=== PATIENT | male | born 1935 | race Caucasian/White ===

== ENCOUNTER 2016-03-31 15:50 | Outpatient (CLI) | payer MEDICARE | END 2016-03-31 15:51 | disposition home or self-care (01) | DX: D70.9 Neutropenia, unspecified (principal); D63.1 Anemia in chronic kidney disease; N50.9 Disorder of male genital organs, unspecified ==

== ENCOUNTER 2016-06-23 11:59 | Outpatient (CLI) | payer MEDICARE | END 2016-06-23 12:00 | disposition home or self-care (01) | DX: N05.9 Unspecified nephritic syndrome with unspecified morphologic changes (principal); D70.9 Neutropenia, unspecified; D63.1 Anemia in chronic kidney disease; R80.9 Proteinuria, unspecified; E83.30 Disorder of phosphorus metabolism, unspecified; N25.81 Secondary hyperparathyroidism of renal origin ==

== ENCOUNTER 2016-06-23 15:12 | Outpatient (CLI) | payer MEDICARE | END 2016-06-23 15:13 | disposition home or self-care (01) | DX: N05.9 Unspecified nephritic syndrome with unspecified morphologic changes (principal); D70.9 Neutropenia, unspecified; D63.1 Anemia in chronic kidney disease; E83.30 Disorder of phosphorus metabolism, unspecified; R80.9 Proteinuria, unspecified ==

== ENCOUNTER 2016-06-24 08:00 | Outpatient (CLI) | payer MEDICARE | END 2016-06-24 23:59 | DX: N05.9 Unspecified nephritic syndrome with unspecified morphologic changes (principal); R80.9 Proteinuria, unspecified; D70.9 Neutropenia, unspecified; D63.1 Anemia in chronic kidney disease; E83.30 Disorder of phosphorus metabolism, unspecified; N25.81 Secondary hyperparathyroidism of renal origin ==

== ENCOUNTER 2016-07-28 07:58 | Outpatient (CLI) | payer MEDICARE ==
[2016-07-28 11:23] LABS: BASOPHILS % (AUTO) 0.5 %; EOSINOPHILS # (AUTO) 0.2 10^3/uL (0.0-0.7); EOSINOPHILS % (AUTO) 3.1 %; HCT - HEMATOCRIT 31.2 % (42.0-52.0); HGB - HEMOGLOBIN 10.4 g/dL (14.0-18.0); LYMPHOCYTES % (AUTO) 12.9 %; MEAN CORPUSCULAR HEMOGLOBIN 30.1 pg (27.0-31.0); MEAN CORPUSCULAR HGB CONC 33.3 g/dL (32.0-36.0); MEAN CORPUSCULAR VOLUME 90.5 fL (80.0-94.0); MEAN PLATELET VOLUME 9.3 fL (7.4-11.4); MONOCYTES # (AUTO) 0.6 10^3/uL (0.0-1.0); MONOCYTES % (AUTO) 8.1 %; NEUTROPHILS # (AUTO) 5.8 10^3/uL (1.5-6.6); NEUTROPHILS % (AUTO) 75.4 %; RED BLOOD COUNT 3.45 10^6/uL (4.70-6.10); RED CELL DISTRIBUTION WIDTH 13.6 % (12.0-15.0); UNCORRECTED WHITE BLOOD COUNT 7.7 x10^3/uL; WHITE BLOOD COUNT 7.7 x10^3/uL (4.8-10.8)
[2016-07-28 11:30] LABS: CALCIUM 8.5 mg/dL (8.5-10.3); CREATININE 4.2 mg/dL (0.6-1.2)
== END 2016-07-28 07:59 | disposition home or self-care (01) ==
LOC: LAB.F 07:58
PROVIDERS: ATTEND Internal Medicine Nephrology
DX: N05.9 Unspecified nephritic syndrome with unspecified morphologic changes (principal); D63.1 Anemia in chronic kidney disease
CPT/HCPCS: 36415; 80048; 83880; 85025

== ENCOUNTER 2016-08-27 08:16 | Outpatient (CLI) | payer MEDICARE ==
[2016-08-27 11:05] LABS: BASOPHILS % (AUTO) 0.8 %; EOSINOPHILS # (AUTO) 0.2 10^3/uL (0.0-0.7); EOSINOPHILS % (AUTO) 3.4 %; HCT - HEMATOCRIT 31.3 % (42.0-52.0); HGB - HEMOGLOBIN 10.5 g/dL (14.0-18.0); LYMPHOCYTES # (AUTO) 0.9 10^3/uL (1.5-3.5); LYMPHOCYTES % (AUTO) 17.3 %; MEAN CORPUSCULAR HEMOGLOBIN 30.6 pg (27.0-31.0); MEAN CORPUSCULAR HGB CONC 33.7 g/dL (32.0-36.0); MEAN PLATELET VOLUME 9.9 fL (7.4-11.4); MONOCYTES # (AUTO) 0.4 10^3/uL (0.0-1.0); MONOCYTES % (AUTO) 7.1 %; NEUTROPHILS # (AUTO) 3.8 10^3/uL (1.5-6.6); NEUTROPHILS % (AUTO) 71.4 %; RED BLOOD COUNT 3.44 10^6/uL (4.70-6.10); RED CELL DISTRIBUTION WIDTH 13.2 % (12.0-15.0); UNCORRECTED WHITE BLOOD COUNT 5.4 x10^3/uL; WHITE BLOOD COUNT 5.4 x10^3/uL (4.8-10.8)
[2016-08-27 11:34] LABS: FERRITIN 172.1 ng/mL (23.9-336.2)
[2016-08-27 14:37] LABS: CALCIUM 8.6 mg/dL (8.5-10.3); CREATININE 5.4 mg/dL (0.6-1.2); PHOSPHORUS 5.6 mg/dL (2.5-4.6); POTASSIUM 4.7 mmol/L (3.5-5.0)
== END 2016-08-27 08:17 | disposition home or self-care (01) ==
LOC: LAB.F 08:16
PROVIDERS: ATTEND Internal Medicine Nephrology
DX: N05.9 Unspecified nephritic syndrome with unspecified morphologic changes (principal); D63.1 Anemia in chronic kidney disease; D50.0 Iron deficiency anemia secondary to blood loss (chronic); E83.30 Disorder of phosphorus metabolism, unspecified
CPT/HCPCS: 36415; 80048; 82728; 83540; 83880; 83970; 84100; 84466; 85025

== ENCOUNTER 2016-09-29 14:19 | Outpatient (CLI) | payer MEDICARE ==
[2016-09-29 18:46] LABS: HGB - HEMOGLOBIN 10.6 g/dL (14.0-18.0); MEAN CORPUSCULAR HEMOGLOBIN 30.4 pg (27.0-31.0); MEAN CORPUSCULAR HGB CONC 33.1 g/dL (32.0-36.0); MEAN CORPUSCULAR VOLUME 91.6 fL (80.0-94.0); MEAN PLATELET VOLUME 9.3 fL (7.4-11.4); RED BLOOD COUNT 3.49 10^6/uL (4.70-6.10); RED CELL DISTRIBUTION WIDTH 13.7 % (12.0-15.0); WHITE BLOOD COUNT 5.7 x10^3/uL (4.8-10.8)
[2016-09-29 19:45] LABS: CALCIUM 8.3 mg/dL (8.5-10.3)
[2016-09-29 19:47] LABS: CREATININE 7.2 mg/dL (0.6-1.2)
== END 2016-09-29 14:20 | disposition home or self-care (01) ==
LOC: LAB.F 14:19
PROVIDERS: ATTEND Internal Medicine Nephrology
DX: D70.9 Neutropenia, unspecified (principal); N05.9 Unspecified nephritic syndrome with unspecified morphologic changes
CPT/HCPCS: 36415; 80048

== ENCOUNTER 2017-04-08 12:10 | Outpatient (CLI) | payer MEDICARE ==
--- NOTE | 2017-04-08 15:22 | XRAY Report ---
BILATERAL HIPS AND PELVIS: 04/08/2017 CLINICAL INDICATION: Hip pain. FINDINGS: Frontal view of the hips and pelvis and frogleg lateral views of the hips demonstrate mild osteoarthritis. There is no evidence of acute fracture or dislocation. Peritoneal dialysis catheter is noted in the pelvis, and atherosclerotic calcifications are present. IMPRESSION: MILD BILATERAL HIP OSTEOARTHRITIS. TD: 04/08/2017 15:20
--- NOTE | 2017-04-08 15:23 | XRAY Report ---
TWO VIEW CHEST: 04/08/2017 CLINICAL INDICATION: Shortness of breath. COMPARISON: 07/04/2015. FINDINGS: Frontal and lateral views of the chest demonstrate a normal cardiac silhouette. The lungs remain hyperinflated, compatible with COPD. No focal consolidation, effusion, or pneumothorax is present. IMPRESSION: STABLE COPD. NO EVIDENCE OF ACUTE CARDIOPULMONARY DISEASE. TD: 04/08/2017 15:22
== END 2017-04-08 12:11 | disposition home or self-care (01) ==
LOC: DI 12:10
PROVIDERS: ATTEND Physician Assistant
DX: J44.9 Chronic obstructive pulmonary disease, unspecified (principal); M16.0 Bilateral primary osteoarthritis of hip
CPT/HCPCS: 71046; 73521

== ENCOUNTER 2018-04-08 07:32 | Day surgery (SDC) | payer MEDICARE ==
[2018-04-08] MEDS ORDERED: KETOROLAC 0.45% OPHTH DROPS ONE (07:51)
[2018-04-08] MEDS ORDERED: PROPARACAINE 0.5% OPHTH DROPS 15 ML ONE (07:52)
[2018-04-08] MEDS ORDERED: LACTATED RINGERS 500 ML IV ONE (07:53)
--- NOTE | 2018-04-08 08:06 | ANESTHESIA ---
Pre-Anesthesia VS, & Labs - Diagnosis senile combined cataract - Procedure laser assisted cataract extraction with lens implant, left; right eye laser arcuate corneal astigmatism correction Vital Signs: Temp Pulse Resp BP Pulse Ox 36.5 C 59 L 16 140/74 H 98 04/08/18 08:01 04/08/18 08:01 04/08/18 08:01 04/08/18 08:01 04/08/18 08:01 Height 5 ft 11 in Weight (kg) 77.7 kg - NPO >8 hours Home Medications and Allergies Calcium Carbonate [Tums] 1,000 mg PO AC 01/26/14 Allergies/Adverse Reactions: Allergies Allergy/AdvReac Type Severity Reaction Status Date / Time No Known Drug Allergies Allergy Verified 03/09/14 09:17 Anes History & Medical History - Medical History Cardiovascular: reports: None Pulmonary: reports: None Gastrointestinal: reports: GERD Urinary: reports: Dialysis (peritoneal exchanges at home) Musculoskeletal: reports: Osteoarthritis Endocrine/Autoimmune: reports: None Skin: reports: None Smoking Status: Former smoker (pipe for short time years ago) - Surgical History General: Colonoscopy Eyes Ears Nose Throat (EENT): Cataracts Exam General: Alert, Oriented x3 Dental: WNL Mouth Opening: Greater than 4 Fingerbreadths Neck Mobility: Reduced Mallampati classification: II Thyromental Distance: greater than 6 cm Respiratory: Lungs clear Cardiovascular: Regular rate, Normal S1, Normal S2 Mental/Cognitive Status: Alert/Oriented X3 Plan Anesthesia Type: MAC Consent for Procedure(s) Verified and Reviewed: Yes Code Status: Attempt Resuscitation ASA classification: 3-Severe systemic disease Is this case an emergency?: No
[2018-04-08] MEDS: PHENYLEPHRINE 2.5% OPHTH 2 ML DROPS ONE ×3 (08:10→08:20)
[2018-04-08] MEDS: CYCLOPENTOLATE 1% OPHTH DROPS 2 ML ONE ×3 (08:11→08:20)
[2018-04-08] MEDS ORDERED: TRIAMCIN/MOXIFLOX OPHTHALMIC 0.6 ML VIAL IO ONE (08:16)
[2018-04-08] MEDS ORDERED: TIMOLOL 0.5% OPHTH DROPS ONE (08:16)
[2018-04-08] MEDS ORDERED: BRIMONIDINE 0.2% OPHTH DROPS 5 ML ONE (08:16)
[2018-04-08] MEDS ORDERED: EPINEPHrine 1 MG/ML AMP ONE (08:17)
[2018-04-08] MEDS ORDERED: VANCOMYCIN OPHTHALMI 8MG/0.8ML 8 MG/0.8 ML SYRINGE IO ONE (08:17)
[2018-04-08] MEDS ORDERED: BSS/LIDOCAINE/EPINEPHRINE 1 ML SYRINGE ONE (08:17)
[2018-04-08] MEDS ORDERED: PROPARACAINE 0.5% OPHTH DROPS 15 ML EACHEYE ONE (09:10)
[2018-04-08] MEDS ORDERED: CHONDR SULF/HYALURONATE SYRINGE IO ONE (09:16)
[2018-04-08] MEDS ORDERED: TIMOLOL 0.5% OPHTH DROPS OPTH ONE (09:16)
[2018-04-08] MEDS ORDERED: BRIMONIDINE 0.2% OPHTH DROPS 5 ML OPTH ONE (09:16)
[2018-04-08] MEDS ORDERED: EPINEPHrine 1 MG/ML AMP IVP ONE (09:16)
[2018-04-08] MEDS ORDERED: BSS/LIDOCAINE/EPINEPHRINE 1 ML SYRINGE IO ONE (09:17)
[2018-04-08] MEDS ORDERED: MIDAZOLAM 2 MG/2 ML VIAL IVP ONE (09:30)
[2018-04-08] MEDS ORDERED: NEOMYCIN/POLYMYX/DEXAMETH OPHTH DROPS 5 ML ONE (09:46)
[2018-04-08 10:18] VITALS: BP 126/65
--- NOTE | 2018-04-08 10:39 | OPERATIVE REPORT ---
DATE OF SERVICE: 04/08/2018 Physician: Ayden Potter MD PREOPERATIVE DIAGNOSIS: Visually significant cataract, left eye. Cataract surgery was performed on the right eye on 03/09/2014. POSTOPERATIVE DIAGNOSES: Visually significant cataract, left eye. Cataract surgery was performed on the right eye on 03/09/2014. PROCEDURES 1. Phacoemulsification with posterior chamber intraocular lens implant, left eye, with laser assist. 2. Laser arcuate incisions of the right eye only to correct astigmatism. SURGEON: Ayden Potter MD ANESTHESIA: Monitored anesthesia care. COMPLICATIONS: None. OPERATIVE INDICATIONS: This is an 82-year-old man with progressive vision loss in the left eye due to 3+ nuclear sclerotic and 2-3+ cortical cataract. Best corrected visual acuity was 20/30, with glare to 20/70 in the left eye. Indications for surgery are overall decrease in vision, difficulty reading and difficulty driving in low light or at night. He was consented at length concerning risks and benefits of cataract, left eye, which he expressed a desire to proceed with surgery. He was also consented for laser arcuate incisions of the right eye, and wished to proceed with that as well. OPERATIVE PROCEDURE: The patient was taken to OR #3 and placed under monitored anesthesia care. A surgical timeout was conducted confirming correct patient, correct procedure, and correct surgical site. He was placed on the LenSx laser and his right eye was docked to the laser interface. Laser arcuate keratotomy incisions were performed on the right eye in 2 seconds. The laser was then docked to his left eye. With the laser on the left eye, I performed the capsulotomy lens softening, phacoemulsification wounds, and arcuate keratotomy incisions. He was then moved to the operating microscope given topical anesthesia, and prepped and draped in the usual sterile fashion. The eye was entered at the 3 and 6-o'clock positions. Intracameral Shugarcaine was injected into the anterior chamber, followed by Viscoat. Capsulorrhexis is created by the LenSx laser was removed from the anterior chamber, and the nucleus was hydrodissected and phacoemulsified. The cortex was evacuated using automated infusion and aspiration. Provisc was injected in the capsular bag, and a 19.0- diopter intraocular lens was inserted into the bag. Approximately 0.8 mL mixture of triamcinolone, moxifloxacin, and vancomycin was injected subconjunctivally in the superior quadrant for infection and inflammation prophylaxis. I and A was used to evacuate the viscoelastic materials. The eye was inflated to physiologic pressure using balanced salt solution, and found to be watertight. The patient was taken from the operating room in good condition, and given postop instructions. TD: 04/08/2018 10:07 MACY
== END 2018-04-08 07:33 | disposition home or self-care (01) ==
LOC: SDS 07:32
PROVIDERS: ATTEND Ophthalmology
PROC: 08RK3JZ Replacement of Left Lens with Synthetic Substitute, Percutaneous Approach (ICD-10-PCS; principal; 2018-04-08 09:00)
DX: H25.812 Combined forms of age-related cataract, left eye (principal); H52.202 Unspecified astigmatism, left eye; N18.6 End stage renal disease; Z99.2 Dependence on renal dialysis
CPT/HCPCS: 66984; A9270; J3490; V2632

== ENCOUNTER 2018-07-04 07:16 | Outpatient (CLI) | payer MEDICARE | END 2018-07-04 07:17 | disposition short-term general hospital (02) | LOC: EMS 07:16 | PROVIDERS: ATTEND Surgery | DX: M25.551 Pain in right hip (principal); W01.0XXA Fall on same level from slipping, tripping and stumbling without subsequent striking against object, initial encounter; Y92.009 Unspecified place in unspecified non-institutional (private) residence as the place of occurrence of the external cause; Z99.2 Dependence on renal dialysis | CPT/HCPCS: A0425; A0427 ==

== ENCOUNTER 2018-12-30 09:52 | Outpatient (CLI) | payer MEDICARE ==
--- NOTE | 2018-12-31 04:02 | XRAY Report ---
Reason: COUGH Procedure Date: 12/30/2018 Accession Number: [id number] / [id number] Procedure: XR - Chest 2 View X-Ray CPT Code: 98651 Final Report FULL RESULT: EXAM: CHEST RADIOGRAPHY EXAM DATE: 12/30/2018 10:08 AM. CLINICAL HISTORY: COUGH. COMPARISON: CHEST 2 VIEW 04/08/2017 12:14 PM. TECHNIQUE: 2 views. FINDINGS: Lungs/Pleura: Large lung volumes. Mild bibasilar atelectasis or infiltrate. No definite pleural effusion seen. No pneumothorax. Mediastinum: Heart size normal to upper normal. Aortic atherosclerosis. Hiatal hernia. Other: None. IMPRESSION: 1. Emphysema with mild bibasilar atelectasis or infiltrate. 2. Heart size normal to upper normal. 3. Hiatal hernia. RADIA
== END 2018-12-30 09:53 | disposition home or self-care (01) ==
LOC: DI 09:52
DX: J43.9 Emphysema, unspecified (principal); K44.9 Diaphragmatic hernia without obstruction or gangrene
CPT/HCPCS: 71046

== ENCOUNTER 2019-04-28 11:23 | Outpatient (CLI) | payer MEDICARE ==
--- NOTE | 2019-04-28 15:35 | XRAY Report ---
Reason: PAIN IN LT KNEE RT HIP Procedure Date: 04/28/2019 Accession Number: [id number] / [id number] Procedure: XR - Knee 3 View LT CPT Code: Final Report FULL RESULT: EXAM: LEFT KNEE RADIOGRAPHY EXAM DATE: 04/28/2019 11:47 AM. CLINICAL HISTORY: PAIN IN LT KNEE. COMPARISON: HIP BILAT 04/08/2017 12:14 PM. TECHNIQUE: 3 views. FINDINGS: Bones: Normal. No fractures or bone lesions. Joints: Normal. No effusion. No subluxations. Soft Tissues: Normal. No soft tissue swelling. IMPRESSION: Normal left knee radiography. RADIA
--- NOTE | 2019-04-28 15:37 | XRAY Report ---
Reason: PAIN IN LT KNEE RT HIP Procedure Date: 04/28/2019 Accession Number: [id number] / [id number] Procedure: XR - Hip w/Pelvis 2-3V RT CPT Code: Final Report FULL RESULT: EXAM: RIGHT HIP RADIOGRAPHY EXAM DATE: 04/28/2019 11:47 AM. CLINICAL HISTORY: PAIN IN RT HIP. COMPARISON: HIP BILAT 04/08/2017 12:14 PM. TECHNIQUE: 3 views. FINDINGS: Now present is a bipolar right hip hemiarthroplasty. Alignment is grossly-anatomic. No evidence of loosening. No fracture or focal bone lesion is identified. Peroneal dialysis catheter in the pelvis, as before. Mild L3-L4, moderate L4-L5 degenerative disk disease, as before. Mild bilateral iliofemoral artery atherosclerotic calcification. IMPRESSION: Bipolar right hip hemiarthroplasty showing grossly-anatomic alignment. RADIA
== END 2019-04-28 11:24 | disposition home or self-care (01) ==
LOC: DI 11:23
PROVIDERS: ATTEND Physician Assistant
DX: M25.562 Pain in left knee (principal); M25.551 Pain in right hip; Z96.641 Presence of right artificial hip joint

== ENCOUNTER 2019-07-13 10:35 | Outpatient (CLI) | payer MEDICARE | END 2019-07-13 10:36 | disposition critical access hospital (66) | LOC: EMS 10:35 | PROVIDERS: ATTEND Surgery | DX: R53.1 Weakness (principal); R41.0 Disorientation, unspecified; R11.2 Nausea with vomiting, unspecified; R06.02 Shortness of breath | CPT/HCPCS: A0425; A0427 ==

== ENCOUNTER 2019-07-13 10:59 | Emergency (ER) | payer MEDICARE ==
--- NOTE | 2019-07-13 11:14 | ED Physician Documentation ---
PD HPI DYSPNEA - Stated complaint Stated Complaint: SOA - Chief complaint Chief Complaint: Critical Care - History obtained from History obtained from: Patient (Patient comes emergency department complaining of worsening cough for the last day or 2 and shortness of breath that started this morning. He states he started vomiting yesterday morning after having a sharp pain in the middle of his abdomen. Patient states this is not unusual for him and that every 7 to 10 days, he has similar symptoms. However, he usually does not have cough or shortness of breath. Patient has a history of kidney failure for which she sees Dr. Gutierrez, and does peritoneal dialysis. 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 Patient states that he does not have any history of any lung disorder that he knows of, and does not use home oxygen. Medics report that the patient was found to have a blood pressure of 50 systolic when they arrived and O2 saturation in the low 70s. However, he was alert at that time. They started IV fluids on him and were able to get his blood pressure up to 80s over 40s. Medics report that there is a blood pressure log at the patient's house and that this is roughly his baseline. Patient also confirms that he has a history of low blood pressure. Patient denies any chest pain. He is not currently having any abdominal pain. He did not notice any sixto blood or coffee grounds in his vomit and no melena or sixto blood in his stools. Patient states that he does not have a history of diabetes. No cardiac issues that he knows of. No other complaints at this time.) Review of Systems Ten Systems: 10 systems reviewed and negative Constitutional: reports: Reviewed and negative Eyes: reports: Reviewed and negative Ears: reports: Reviewed and negative Nose: reports: Reviewed and negative Throat: reports: Reviewed and negative Cardiac: reports: Reviewed and negative Respiratory: reports: Dyspnea, Cough GI: reports: Abdominal Pain, Nausea, Vomiting : reports: Reviewed and negative Skin: reports: Reviewed and negative Musculoskeletal: reports: Reviewed and negative Neurologic: reports: Reviewed and negative Psychiatric: reports: Reviewed and negative Endocrine: reports: Reviewed and negative Immunocompromised: reports: Reviewed and negative PD PAST MEDICAL HISTORY - Past Medical History Cardiovascular: None Respiratory: None Endocrine/Autoimmune: None GI: GERD : Dialysis (peritoneal exchanges at home) HEENT: Chronic vision loss Psych: Depression Musculoskeletal: Osteoarthritis Derm: None - Past Surgical History General: Colonoscopy HEENT: Cataracts - Present Medications Home Medications: Ambulatory Orders Medication Instructions Recorded Confirmed Calcium Carbonate [Tums] 1,000 mg PO AC 01/26/14 04/07/18 - Allergies Allergies/Adverse Reactions: Allergies Allergy/AdvReac Type Severity Reaction Status Date / Time No Known Drug Allergies Allergy Verified 07/13/19 11:36 - Social History Smoking Status: Former smoker (pipe for short time years ago) PD ED PE NORMAL - Vitals Vital signs reviewed: Yes - General General: Alert and oriented X 3, No acute distress, Other (Patient is thin and disheveled, with poor hygiene, but able to give a full history himself.) - HEENT HEENT: Atraumatic, PERRL, EOMI, Moist mucous membranes, Other (No icterus) - Neck Neck: Supple, no meningeal sign - Cardiac Cardiac: RRR, No murmur - Respiratory Respiratory: No respiratory distress, Clear bilaterally - Abdomen Abdomen: Soft, Non tender, Non distended - Derm Derm: Normal color, Warm and dry, No rash - Extremities Extremities: No deformity, No edema - Neuro Neuro: Alert and oriented X 3, Other (Grossly normal.) - Psych Psych: Normal mood, Normal affect Results - Vitals Vitals: Oxygen O2 Source Simple Mask Oxygen Flow Rate 6 - EKG (time done) 1100 Rate: Rate (enter#) (92) Rhythm: NSR Mcdonald: Normal Intervals: Prolonged FL QRS: Normal Ischemia: Normal ST segments, Non specific changes Compare to prior EKG: Old EKG unavailable Computer interpretation: Agree with computer - Labs Labs: Microbiology 07/13/19 11:50 Blood Culture - Final Blood - Right Hand NO GROWTH AFTER 5 DAYS 07/13/19 11:20 Blood Culture - Final Blood - Right Iv-Start NO GROWTH AFTER 5 DAYS Laboratory Tests 07/13/19 07/13/19 07/13/19 11:20 11:20 11:20 WBC 1.9 L* RBC 4.69 L Hgb 14.1 Hct 44.1 MCV 94.0 MCH 30.1 MCHC 32.0 RDW 13.6 Plt Count 248 MPV 10.7 Neut # (Auto) Not Reportable Lymph # (Auto) Not Reportable Scott # (Auto) Not Reportable Eos # (Auto) Not Reportable Baso # (Auto) Not Reportable Absolute Nucleated RBC Not Reportable Total Counted 100 Band Neuts % (Manual) 15 H Abnorm Lymph % (Manual) 0 Metamyelocytes % 8 H Myelocytes % 1 H Nucleated RBC % Not Reportable Neutrophils # (Manual) 1.1 L Lymphocytes # (Manual) 0.4 L Monocytes # (Manual) 0.3 Eosinophils # (Manual) 0.0 Basophils # (Manual) 0.0 Differential Comment MANUAL DIFFERENTIAL WBC Morphology 1+ SMUDGE CELLS Platelet Estimate NORMAL (130-450,000) Platelet Morphology NORMAL APPEARANCE RBC Morph Micro Appear NORMAL APPEARANCE PT 13.2 H INR 1.2 APTT 27.2 Bld Gas Analysis Time Sample Site ABG pH ABG pCO2 ABG pO2 ABG HCO3 ABG Total CO2 ABG O2 Saturation ABG Base Excess Sandeep Test O2 Delivery Device O2 Liters/Min Sodium 141 Potassium 3.4 L Chloride 102 Carbon Dioxide 20 L Anion Gap 19.0 H BUN 72 H Creatinine 6.3 H Estimated GFR (MDRD) 9 L Glucose 133 H Lactic Acid Calcium 7.9 L Total Bilirubin 0.8 AST 31 ALT 12 Alkaline Phosphatase 63 Troponin I High Sens B-Natriuretic Peptide Total Protein 5.1 L Albumin 2.4 L Globulin 2.7 Albumin/Globulin Ratio 0.9 L Lipase 32 Urine Color Urine Clarity Urine pH Ur Specific [place] Urine Protein Urine Glucose (UA) Urine Ketones Urine Occult Blood Urine Nitrite Urine Bilirubin Urine Urobilinogen Ur Leukocyte Esterase Ur Microscopic Review Urine Culture Comments 07/13/19 07/13/19 07/13/19 11:20 11:20 11:20 WBC RBC Hgb Hct MCV MCH MCHC RDW Plt Count MPV Neut # (Auto) Lymph # (Auto) Scott # (Auto) Eos # (Auto) Baso # (Auto) Absolute Nucleated RBC Total Counted Band Neuts % (Manual) Abnorm Lymph % (Manual) Metamyelocytes % Myelocytes % Nucleated RBC % Neutrophils # (Manual) Lymphocytes # (Manual) Monocytes # (Manual) Eosinophils # (Manual) Basophils # (Manual) Differential Comment WBC Morphology Platelet Estimate Platelet Morphology RBC Morph Micro Appear PT INR APTT Bld Gas Analysis Time Sample Site ABG pH ABG pCO2 ABG pO2 ABG HCO3 ABG Total CO2 ABG O2 Saturation ABG Base Excess Sandeep Test O2 Delivery Device O2 Liters/Min Sodium Potassium Chloride Carbon Dioxide Anion Gap BUN Creatinine Estimated GFR (MDRD) Glucose Lactic Acid 9.2 H* Calcium Total Bilirubin AST ALT Alkaline Phosphatase Troponin I High Sens 34.9 H* B-Natriuretic Peptide 260 H Total Protein Albumin Globulin Albumin/Globulin Ratio Lipase Urine Color Urine Clarity Urine pH Ur Specific [place] Urine Protein Urine Glucose (UA) Urine Ketones Urine Occult Blood Urine Nitrite Urine Bilirubin Urine Urobilinogen Ur Leukocyte Esterase Ur Microscopic Review Urine Culture Comments 07/13/19 07/13/19 07/13/19 12:14 12:27 14:43 WBC RBC Hgb Hct MCV MCH MCHC RDW Plt Count MPV Neut # (Auto) Lymph # (Auto) Scott # (Auto) Eos # (Auto) Baso # (Auto) Absolute Nucleated RBC Total Counted Band Neuts % (Manual) Abnorm Lymph % (Manual) Metamyelocytes % Myelocytes % Nucleated RBC % Neutrophils # (Manual) Lymphocytes # (Manual) Monocytes # (Manual) Eosinophils # (Manual) Basophils # (Manual) Differential Comment WBC Morphology Platelet Estimate Platelet Morphology RBC Morph Micro Appear PT INR APTT Bld Gas Analysis Time 1217 Sample Site RIGHT RADIAL ABG pH 7.35 ABG pCO2 33 L ABG pO2 55 L* ABG HCO3 18.0 L ABG Total CO2 19.0 L ABG O2 Saturation 87 L* ABG Base Excess -6.5 L Sandeep Test POSITIVE O2 Delivery Device SIMPLE MASK O2 Liters/Min 7.00 Sodium Potassium Chloride Carbon Dioxide Anion Gap BUN Creatinine Estimated GFR (MDRD) Glucose Lactic Acid 5.6 H* Calcium Total Bilirubin AST ALT Alkaline Phosphatase Troponin I High Sens B-Natriuretic Peptide Total Protein Albumin Globulin Albumin/Globulin Ratio Lipase Urine Color YELLOW Urine Clarity CLEAR Urine pH 6.0 Ur Specific [place] 1.015 Urine Protein TRACE Urine Glucose (UA) NEGATIVE Urine Ketones NEGATIVE Urine Occult Blood NEGATIVE Urine Nitrite NEGATIVE Urine Bilirubin NEGATIVE Urine Urobilinogen 0.2 (NORMAL) Ur Leukocyte Esterase NEGATIVE Ur Microscopic Review NOT INDICATED Urine Culture Comments NOT INDICATED 07/13/19 14:43 WBC RBC Hgb Hct MCV MCH MCHC RDW Plt Count MPV Neut # (Auto) Lymph # (Auto) Scott # (Auto) Eos # (Auto) Baso # (Auto) Absolute Nucleated RBC Total Counted Band Neuts % (Manual) Abnorm Lymph % (Manual) Metamyelocytes % Myelocytes % Nucleated RBC % Neutrophils # (Manual) Lymphocytes # (Manual) Monocytes # (Manual) Eosinophils # (Manual) Basophils # (Manual) Differential Comment WBC Morphology Platelet Estimate Platelet Morphology RBC Morph Micro Appear PT INR APTT Bld Gas Analysis Time Sample Site ABG pH ABG pCO2 ABG pO2 ABG HCO3 ABG Total CO2 ABG O2 Saturation ABG Base Excess Sandeep Test O2 Delivery Device O2 Liters/Min Sodium Potassium Chloride Carbon Dioxide Anion Gap BUN Creatinine Estimated GFR (MDRD) Glucose Lactic Acid Calcium Total Bilirubin AST ALT Alkaline Phosphatase Troponin I High Sens 62.4 H* B-Natriuretic Peptide Total Protein Albumin Globulin Albumin/Globulin Ratio Lipase Urine Color Urine Clarity Urine pH Ur Specific [place] Urine Protein Urine Glucose (UA) Urine Ketones Urine Occult Blood Urine Nitrite Urine Bilirubin Urine Urobilinogen Ur Leukocyte Esterase Ur Microscopic Review Urine Culture Comments - Rads (name of study) cxr Radiology: Final report received, EMP read indepedently, See rad report (Findings suggestive of multifocal pneumonia) PD MEDICAL DECISION MAKING - ED course Complexity details: reviewed old records, reviewed results, re-evaluated patient, considered differential, d/w patient ED course: Patient was worked up with labs, EKG, chest x-ray, and urinalysis. His blood pressure upon arrival had come up to 103/80, which was much better than when medics first picked him up. The patient was found to have a room air saturation of low 70s, and was placed on 6 L of oxygen per nasal cannula for this, which brought him up to the low 90s. However, the patient at no time appeared to be in respiratory distress, and actually, was able to speak in full sentences. As such, I did order an ABG on the patient, which confirmed hypoxemia. I started him on antibiotics, as his chest xray showed findings suspicious for pneumonia. I spoke with the hospitalist at [facility], where pt's thiokol operator is, and pt was accepted in transfer. Departure - Departure Disposition: 02 Transfer Acute Care Hosp Clinical Impression: Hypoxia Pneumonia Qualifiers: Pneumonia type: due to unspecified organism Laterality: bilateral Lung location: unspecified part of lung Qualified Code(s): J18.9 - Pneumonia, unspecified organism Condition: Serious Discharge Date/Time: 07/13/19 15:25
[2019-07-13 11:38] LABS: BASOPHILS % (AUTO) 0.5 %; HGB - HEMOGLOBIN 14.1 g/dL (14.0-18.0); MEAN CORPUSCULAR HEMOGLOBIN 30.1 pg (27.0-31.0); MEAN PLATELET VOLUME 10.7 fL (7.4-11.4); MONOCYTES % (AUTO) 8.2 %; NEUTROPHILS % (AUTO) 72.8 %; PLT - PLATELET COUNT 248 10^3/uL (130-450); RED BLOOD COUNT 4.69 10^6/uL (4.70-6.10); RED CELL DISTRIBUTION WIDTH 13.6 % (12.0-15.0)
[2019-07-13 11:40] LABS: WHITE BLOOD COUNT 1.9 x10^3/uL (4.8-10.8)
[2019-07-13 11:41] LABS: ABNORMAL LYMPHS % (MANUAL) 0 %
[2019-07-13 11:42] LABS: INR 1.2 (0.8-1.2); PT - PROTHROMBIN TIME 13.2 secs (9.9-12.6)
[2019-07-13 11:49] LABS: PARTIAL THROMBOPLASTIN TIME 27.2 secs (24.9-33.3)
[2019-07-13 12:05] LABS: BAND NEUTROPHILS % (MANUAL) 15 %; DIFFERENTIAL COMMENT MANUAL DIFFERENTIAL; LYMPHOCYTES # (MANUAL) 0.4 10^3/uL (1.5-3.5); LYMPHOCYTES % (MANUAL) 21 %; METAMYELOCYTES % (MANUAL) 8 %; MONOCYTES # (MANUAL) 0.3 10^3/uL (0.0-1.0); MYELOCYTES % (MANUAL) 1 %; PLATELET ESTIMATE, MANUAL NORMAL (130-450,000) (NORMAL); PLATELET MORPHOLOGY NORMAL APPEARANCE (NORMAL); RBC MORPHOLOGY (MULTIPLE) NORMAL APPEARANCE (NORMAL)
[2019-07-13 12:11] LABS: ALBUMIN/GLOBULIN RATIO 0.9 (1.0-2.2); BILIRUBIN,TOTAL 0.8 mg/dL (0.2-1.0); CREATININE 6.3 mg/dL (0.6-1.2); TOTAL PROTEIN 5.1 g/dL (6.7-8.2)
--- NOTE | 2019-07-13 12:12 | XRAY Report ---
Reason: CHEST PAIN Procedure Date: 07/13/2019 Accession Number: [id number] / [id number] Procedure: XR - Chest 1 View X-Ray CPT Code: 72907 Final Report FULL RESULT: EXAM: CHEST RADIOGRAPHY EXAM DATE: 07/13/2019 11:35 AM. CLINICAL HISTORY: Chest pain. shortness of breath. COMPARISON: CHEST 2 VIEW 12/30/2018 9:59 AM. TECHNIQUE: 1 view. FINDINGS: Lungs/Pleura: Asymmetric interstitial and patchy opacities are seen in the right mid and lower lung region and in the left lung base. No effusion or pneumothorax. Mediastinum: Cardiac silhouette size is normal. Borderline prominence of the central pulmonary artery vasculature is seen. Other: None. IMPRESSION: Asymmetric bilateral interstitial and patchy airspace opacities, right side worse than left side. Findings could be related to asymmetric pulmonary edema. Multifocal pneumonia including viral/atypical process is not excluded. RADIA
[2019-07-13 12:17] LABS: ALBUMIN 2.4 g/dL (3.2-5.5); CALCIUM 7.9 mg/dL (8.5-10.3)
[2019-07-13 12:38] LABS: ABG PCO2 33 mmHg (34-45); ABG PH 7.35 (7.35-7.45); ABG PO2 55 mmHg (80-100)
[2019-07-13 12:39] LABS: ABG BASE EXCESS -6.5 mmol/L (-2.0-3.0)
[2019-07-13 12:40] LABS: ABG OXYGEN SATURATION 87 % (94-98); ALLEN TEST POSITIVE
[2019-07-13 12:43] LABS: BILIRUBIN,URINE NEGATIVE (NEGATIVE); GLUCOSE, URINE (UA) NEGATIVE (NEGATIVE); KETONES,URINE (UA) NEGATIVE (NEGATIVE); LEUKOCYTE ESTERASE, URINE NEGATIVE (NEGATIVE); NITRITE,URINE NEGATIVE (NEGATIVE); OCCULT BLOOD,URINE NEGATIVE (NEGATIVE); PROTEIN,URINE TRACE mg/dL (NEGATIVE); UROBILINOGEN,URINE 0.2 (NORMAL) E.U./dL (NORMAL)
[2019-07-13 12:44] LABS: CLARITY,URINE CLEAR (CLEAR)
[2019-07-13] MEDS ORDERED: cefTRIAXone 2 GM in SODIUM CHLORIDE 0.9% MINIBAG 100 ML IV STA (13:10)
[2019-07-13] MEDS ORDERED: AZITHROMYCIN INJ 500 MG in SODIUM CHLORIDE 0.9% 250 ML IV STA (13:11)
[2019-07-13] MEDS ORDERED: DOPamine 800 MG/500 ML 800 MG/500 ML BAG IV STA (14:32)
[2019-07-13] MEDS ORDERED: SODIUM CHLORIDE 0.9% 1,000 ML IV STA (14:33)
[2019-07-13 15:12] VITALS: BP 94/78
== END 2019-07-13 15:25 | disposition short-term general hospital (02) ==
LOC: EDBD → EDUNIT# → ED 10:59
DX: J18.9 Pneumonia, unspecified organism (principal); R09.02 Hypoxemia; R11.2 Nausea with vomiting, unspecified; N19 Unspecified kidney failure; Z99.2 Dependence on renal dialysis; Z87.891 Personal history of nicotine dependence
CPT/HCPCS: 36415; 36600; 51701; 71045; 80053; 81001; 81003; 82803; 83605; 83690; 83880; 84484; 85025; 85610; 85730; 87040; 87086; 93005; 99284

== ENCOUNTER 2019-08-03 09:37 | Outpatient (CLI) | payer MEDICARE | END 2019-08-03 23:59 | disposition home or self-care (01) | LOC: LAB.R 09:37 | PROVIDERS: ATTEND Family Medicine | DX: N18.6 End stage renal disease (principal) | CPT/HCPCS: 84132 ==

== ENCOUNTER 2019-08-09 22:00 | Outpatient (CLI) | payer MEDICARE ==
[2019-08-10 07:08] LABS: BASOPHILS # (AUTO) 0.1 10^3/uL (0.0-0.1); BASOPHILS % (AUTO) 0.5 %; EOSINOPHILS # (AUTO) 0.8 10^3/uL (0.0-0.7); EOSINOPHILS % (AUTO) 6.7 %; HGB - HEMOGLOBIN 9.5 g/dL (14.0-18.0); LYMPHOCYTES # (AUTO) 1.6 10^3/uL (1.5-3.5); LYMPHOCYTES % (AUTO) 13.6 %; MEAN CORPUSCULAR HEMOGLOBIN 29.5 pg (27.0-31.0); MEAN CORPUSCULAR HGB CONC 31.4 g/dL (32.0-36.0); MEAN CORPUSCULAR VOLUME 94.1 fL (80.0-94.0); MEAN PLATELET VOLUME 10.8 fL (7.4-11.4); MONOCYTES # (AUTO) 0.9 10^3/uL (0.0-1.0); MONOCYTES % (AUTO) 7.7 %; NEUTROPHILS # (AUTO) 8.5 10^3/uL (1.5-6.6); NEUTROPHILS % (AUTO) 70.3 %; PLT - PLATELET COUNT 356 10^3/uL (130-450); RED BLOOD COUNT 3.22 10^6/uL (4.70-6.10); RED CELL DISTRIBUTION WIDTH 14.3 % (12.0-15.0)
[2019-08-10 07:18] LABS: ALBUMIN/GLOBULIN RATIO 0.8 (1.0-2.2); BILIRUBIN,TOTAL 0.6 mg/dL (0.2-1.0); CALCIUM 8.2 mg/dL (8.5-10.3); CREATININE 2.2 mg/dL (0.6-1.2); TOTAL PROTEIN 6.7 g/dL (6.7-8.2)
== END 2019-08-09 23:59 | disposition home or self-care (01) ==
LOC: LAB.R 22:00
DX: N18.6 End stage renal disease (principal)
CPT/HCPCS: 80053; 85025

== ENCOUNTER 2019-08-10 10:45 | Outpatient (CLI) | payer MEDICARE ==
--- NOTE | 2019-08-10 11:34 | XRAY Report ---
PROCEDURE: Chest 2 View X-Ray INDICATIONS: PNA TECHNIQUE: 2 view(s) of the chest. COMPARISON: 07/13/2019 chest radiograph. FINDINGS: Surgical changes and devices: Right-sided large bore central venous catheter with the tip projecting in the lower SVC. Lungs and pleura: No pneumothorax no pleural effusion. Elevation of the left hemidiaphragm. There is mildly improved aeration seen in the right upper lobe, although persistent patchy consolidative opaci ty persists. Scattered scarring/atelectasis Mediastinum: Mediastinal contours are normal. Heart size is normal. Bones and chest wall: No suspicious bony abnormalities. Soft tissues appear unremarkable. IMPRESSION: Improved aeration of both lung bases since 07/13/2019, with patchy residual opacity seen in the right upper lobe. Recommend continued radiographic follow-up to document complete resolution and exclude un derlying pulmonary nodule. If this persists, recommend CT chest for further assessment. Reviewed by: Uli Sexton MD on 08/10/2019 11:33 AM PDT Approved by: Uli Sexton MD on 08/10/2019 11:33 AM PDT Station ID: [id number]
== END 2019-08-10 10:46 | disposition home or self-care (01) ==
LOC: DI 10:45
PROVIDERS: ATTEND Family Medicine
DX: J18.9 Pneumonia, unspecified organism (principal); N18.6 End stage renal disease
CPT/HCPCS: 71046; 80053; 85025

== ENCOUNTER 2019-11-09 14:18 | Outpatient (CLI) | payer MEDICARE ==
--- NOTE | 2019-11-09 17:10 | XRAY Report ---
PROCEDURE: Chest 2 View X-Ray INDICATIONS: TB SCREENING FOR DIALYSIS TRANSFER TECHNIQUE: 2 view(s) of the chest. COMPARISON: Two-view chest 08/10/2019, chest CT 09/23/2019. FINDINGS: Surgical changes and devices: Double-lumen central line from right-sided approach extends into the di stal SVC. Lungs and pleura: No pleural effusions or pneumothorax. Lungs are unchanged with a mild chronic int erstitial prominence and no evidence of chronic active or acute tuberculosis. Elevation of the left h emidiaphragm is again noted, previously present, with minimal lung base atelectasis as a result.. Mediastinum: Mediastinal contours are normal. Heart size is normal. Bones and chest wall: No suspicious bony abnormalities. Soft tissues appear unremarkable. IMPRESSION: Presumed dialysis catheter from right-sided approach in normal position. Minimal interst itial prominence each lung, chronic mild elevation of the left diaphragm, no evidence of chronic acti ve tuberculosis or acute tuberculosis. Reviewed by: Toñito Garcia MD on 11/09/2019 5:09 PM PDT Approved by: Toñito Garcia MD on 11/09/2019 5:09 PM PDT Station ID: [id number]
== END 2019-11-09 14:19 | disposition home or self-care (01) ==
LOC: DI.S 14:18
PROVIDERS: ATTEND Internal Medicine Nephrology
DX: Z11.1 Encounter for screening for respiratory tuberculosis (principal); N18.6 End stage renal disease
CPT/HCPCS: 71046

== ENCOUNTER 2020-01-13 09:18 | Outpatient (CLI) | payer MEDICARE ==
--- NOTE | 2020-01-13 11:30 | Ultrasound Report ---
PROCEDURE: Abdomen Limited INDICATIONS: LIVER MASS, ABN CT TECHNIQUE: Real-time focused scanning was performed of the abdomen, with image documentation. COMPARISON: None FINDINGS: Limited ultrasound of the liver and gallbladder were performed. The liver is at the upper limits of normal measuring 15.0 cm. Echotexture is heterogenous. Echogenic punctate foci are seen thr oughout the liver. In the left lobe there is a septated cyst measuring 2.4 x 1.7 x 2.1 cm, a 7 x 7 x 11 mm cyst, and a 1 5 x 10 x 11 mm cyst. In the right lobe there is a 2.2 x 2.4 x 2.3 cm septated cyst, a 10 x 10 x 11 mm cyst, and a 2.8 x 2.2 x 2.5 cm septated cyst. Multiple smaller cysts are also seen. The largest cyst in the right lobe of the liver corresponds with the CT abnormality. IMPRESSION: Multiple simple and septated cysts of the liver with the largest in the right lobe corre sponding with the CT abnormality from CT dated 09/23/2019. Reviewed by: Addison Rosales on 01/13/2020 11:29 AM PST Approved by: Addison Rosales on 01/13/2020 11:29 AM PST Station ID: [id number]
== END 2020-01-13 09:19 | disposition home or self-care (01) ==
LOC: DI 09:18
PROVIDERS: ATTEND Registered Nurse
DX: K76.89 Other specified diseases of liver (principal); R41.89 Other symptoms and signs involving cognitive functions and awareness
CPT/HCPCS: 76705

== ENCOUNTER 2020-05-27 18:27 | Outpatient (CLI) | payer MEDICARE | END 2020-05-27 18:28 | disposition critical access hospital (66) | LOC: EMS 18:27 | PROVIDERS: ATTEND Emergency Medicine | DX: S09.90XA Unspecified injury of head, initial encounter (principal); M25.511 Pain in right shoulder; R42 Dizziness and giddiness; W01.0XXA Fall on same level from slipping, tripping and stumbling without subsequent striking against object, initial encounter; Y93.89 Activity, other specified | CPT/HCPCS: A0425; A0429 ==

== ENCOUNTER 2020-05-27 18:50 | Emergency (ER) | payer MEDICARE ==
--- NOTE | 2020-05-27 19:20 | ED Physician Documentation ---
History of Present Illness - Stated complaint Stated Complaint: GLF, HIT HEAD AND ALSO HAS RT SHOULDER PAIN - Chief complaint Chief Complaint: Ext Problem - History obtained from History obtained from: Patient, EMS - History of Present Illness Timing: Today Pain level max: 2 Pain level now: 1 - Additonal information Additional information: Patient is an 84-year-old male who presents to the emergency department after a fall at [facility] today. He states that he is having a mild headache, initially had right shoulder pain but this is now resolved. He states he tripped and fell and did strike his head. Has minimal neck pain as well. Placed in a c-collar by EMS. No loss of consciousness. No altered mental status. Not on blood thinners. Nothing makes it better or worse. Review of Systems Ten Systems: 10 systems reviewed and negative Constitutional: denies: Fever, Chills Eyes: denies: Decreased vision, Photophobia Ears: denies: Ear pain Nose: denies: Rhinorrhea / runny nose, Congestion Throat: denies: Sore throat Cardiac: denies: Palpitations Respiratory: denies: Dyspnea, Cough GI: denies: Abdominal Pain, Nausea, Vomiting, Diarrhea Skin: denies: Rash Musculoskeletal: denies: Back pain Neurologic: denies: Focal weakness, Numbness, Seizure, Confused, LOC PD PAST MEDICAL HISTORY - Past Medical History Past Medical History: Yes Cardiovascular: None Respiratory: None Endocrine/Autoimmune: None GI: GERD : Dialysis HEENT: Chronic vision loss Psych: Depression Musculoskeletal: Osteoarthritis Derm: None - Past Surgical History Past Surgical History: Yes General: Colonoscopy HEENT: Cataracts - Present Medications Home Medications: Ambulatory Orders Medication Instructions Recorded Confirmed Bisacodyl Supp [Dulcolax Supp] 10 mg TN DAILY PRN 05/27/20 05/27/20 Ergocalciferol (Vitamin D2) 1,250 mcg PO DAILY 05/27/20 05/27/20 [Vitamin D2] Folic Acid/Vit B Complex and C 1 tab PO DAILY 05/27/20 05/27/20 [Daina-Cricket Tablet] Losartan Potassium 50 mg PO QPM 05/27/20 05/27/20 Melatonin 3 mg PO QPM 05/27/20 05/27/20 Midodrine HCl 2.5 mg PO Q8HR 05/27/20 05/27/20 Pantoprazole Sodium [Protonix] 40 mg PO DAILY 05/27/20 05/27/20 Saccharomyces Boulardii [Florastor] 1 cap PO DAILY 05/27/20 05/27/20 Senna [Senokot] 1 - 2 tab PO BID PRN 05/27/20 05/27/20 - Allergies Allergies/Adverse Reactions: Allergies Allergy/AdvReac Type Severity Reaction Status Date / Time No Known Drug Allergies Allergy Verified 05/27/20 18:59 - Social History Does the pt smoke?: Yes Smoking Status: Current every day smoker Does the pt drink ETOH?: No Does the pt have substance abuse?: No - Immunizations Immunizations are current?: Yes - POLST Patient has POLST: No PD ED PE NORMAL - Vitals Vital signs reviewed: Yes - General General: Alert and oriented X 3, No acute distress - HEENT HEENT: Atraumatic, PERRL, EOMI, Ears normal, Moist mucous membranes, Pharynx benign - Neck Neck: Supple, no meningeal sign, Other (mild upper c-spine TTP. no step off or deformity. ) - Cardiac Cardiac: RRR, Strong equal pulses - Respiratory Respiratory: No respiratory distress, Clear bilaterally - Abdomen Abdomen: Soft, Non tender, Non distended - Derm Derm: Warm and dry - Extremities Extremities: No deformity, No tenderness to palpate, Normal ROM s pain, No edema, Other (Full range of motion of the bilateral shoulders, hips, knees, elbows and wrists without pain. No deformities.) - Neuro Neuro: Alert and oriented X 3, system controller 2-12 intact, No motor deficit, No sensory deficit, Normal speech Eye Opening: Spontaneous Motor: Obeys Commands Verbal: Oriented GCS Score: 15 - Psych Psych: Normal mood, Normal affect Results - Vitals Vitals: Vital Signs - 24 hr 05/27/20 05/27/20 05/27/20 18:47 19:11 20:39 Temperature 36.5 C 36.4 C L Heart Rate 68 64 84 Respiratory 16 18 16 Rate Blood Pressure 196/64 H 168/57 H 160/72 H O2 Saturation 99 96 100 Oxygen O2 Source Room air - Rads (name of study) head CT Radiology: Prelim report reviewed, EMP read contemporaneously, See rad report (1. No acute intracranial abnormality. ) cervical spine CT Radiology: Prelim report reviewed, EMP read contemporaneously, See rad report PD MEDICAL DECISION MAKING - ED course Complexity details: reviewed results, re-evaluated patient, considered differential, d/w patient ED course: No acute findings on head CT, cervical spine CT. No pain of the right shoulder on examination. Ambulating well. He has had the peribronchial consolidation in the past on CTs, no symptoms of pneumonia. He can follow-up with his doctor for further evaluation of this. Patient counseled regarding signs and symptoms for which I believe and urgent re-evaluation would be necessary. Patient with good understanding of and agreement to plan and is comfortable going home at this time This document was made in part using voice recognition software. While efforts are made to proofread this document, sound alike and grammatical errors may occur. 1. No definite fracture or subluxation with evaluation limited by osteopenia. 2. Multilevel moderate degenerative disc disease and facet arthropathy of the cervical spine. 3. Peribronchial consolidation demonstrated within the visualized lungs likely reflecting pneumonia but incompletely evaluated on the current study. Recommend further evaluation with dedicated chest CT if clinically indicated. Departure - Departure Disposition: 01 Home, Self Care Clinical Impression: Head injury Qualifiers: Encounter type: initial encounter Qualified Code(s): S09.90XA - Unspecified injury of head, initial encounter Fall Qualifiers: Encounter type: initial encounter Qualified Code(s): W19.XXXA - Unspecified fall, initial encounter Condition: Good Instructions: ED Head Injury Closed Follow-Up: Kathy Dent ARNP [Primary Care Provider] - Within 1 week Comments: Your CT scans are normal today. Return if you worsen.
--- NOTE | 2020-05-27 19:48 | CT Report ---
PROCEDURE: HEAD WO INDICATIONS: head pain, s/p fall TECHNIQUE: Noncontrast 4.5 mm thick angled axial sections acquired from the foramen magnum to the vertex. For r adiation dose reduction, the following was used: automated exposure control, adjustment of mA and/or kV according to patient size. COMPARISON: CT brain 08/09/2010. FINDINGS: Image quality: Excellent. CSF spaces: Basal cisterns are patent. No extra-axial fluid collections. There is mild cerebral vol ume loss with prominence of the ventricles and sulci. Brain: No intracranial hemorrhage, mass, or mass effect. Brooks-white matter interface is normal. Skull and face: Calvarium and visualized facial bones are intact, without suspicious lesions. Sinuses: Visualized sinuses and mastoids are clear. IMPRESSION: 1. No acute intracranial abnormality. Reviewed by: Phoenix Johnson MD on 05/27/2020 7:47 PM PDT Approved by: Phoenix Johnson MD on 05/27/2020 7:47 PM PDT Station ID: [id number]
--- NOTE | 2020-05-27 19:55 | CT Report ---
PROCEDURE: CERVICAL SPINE WO INDICATIONS: neck pain, s/p fall TECHNIQUE: Noncontrast 3 mm thick sections acquired from the skull base to the T4 level. Sagittal and coronal r eformats were then constructed. For radiation dose reduction, the following was used: automated exp osure control, adjustment of mA and/or kV according to patient size. COMPARISON: CT chest 09/23/2019. FINDINGS: Image quality: Diagnostic. Bones: No definite fractures or subluxation. Visualized osseous structures appear osteopenic, limit ing evaluation. Minimal retrolisthesis demonstrated at C2-C3. There is minimal anterolisthesis at C4- C5, C5-C6, C6-C7, and C7-T1. There is multilevel moderate degenerative disc disease and facet arthrop athy throughout the cervical spine. Visualized superior ribs are intact. Soft tissues: Prevertebral soft tissues are normal in thickness. No paravertebral hematomas. No ap ical pneumothoraces. The visualized lungs demonstrate peribronchial areas of consolidation posteriorl y which is incompletely evaluated on the current study. There is a right internal jugular central kimberly ous catheter extending into the superior vena cava. IMPRESSION: 1. No definite fracture or subluxation with evaluation limited by osteopenia. 2. Multilevel moderate degenerative disc disease and facet arthropathy of the cervical spine. 3. Peribronchial consolidation demonstrated within the visualized lungs likely reflecting pneumonia b ut incompletely evaluated on the current study. Recommend further evaluation with dedicated chest CT if clinically indicated. Reviewed by: Phoenix Johnson MD on 05/27/2020 7:53 PM PDT Approved by: Phoenix Johnson MD on 05/27/2020 7:53 PM PDT Station ID: [id number]
[2020-05-27 20:39] VITALS: BP 160/72
--- OUTSIDE RECORDS SUMMARY | 2020-05-30 02:46 | EXTERNAL MEDICAL SUMMARY RPT | Continuity of Care Document ---
:1935 Demographics Phone Unavailable Preferred Language Unknown Marital Status Unknown Ep[employer] Affiliation Unknown Race Unknown Ethnic Group Unknown Author Organization [facility] Address [address] [place] [address] Phone Social History date description facility [phone]
== END 2020-05-27 21:03 | disposition home or self-care (01) ==
LOC: EDUNIT# → SUPCPDRO 18:50 → ED 18:50
DX: S09.90XA Unspecified injury of head, initial encounter (principal); M25.511 Pain in right shoulder; W01.0XXA Fall on same level from slipping, tripping and stumbling without subsequent striking against object, initial encounter; Y92.129 Unspecified place in nursing home as the place of occurrence of the external cause; M50.30 Other cervical disc degeneration, unspecified cervical region; F17.200 Nicotine dependence, unspecified, uncomplicated
CPT/HCPCS: 99282; 99284

== ENCOUNTER 2021-02-05 15:12 | Outpatient (CLI) | payer MEDICARE | END 2021-02-05 15:13 | disposition critical access hospital (66) | LOC: EMS 15:12 | DX: R53.83 Other fatigue (principal); R53.1 Weakness | CPT/HCPCS: A0425; A0429 ==

== ENCOUNTER 2021-02-05 15:38 | Emergency (ER) | payer MEDICARE ==
[2021-02-05 16:50] LABS: BILIRUBIN,URINE NEGATIVE (NEGATIVE); GLUCOSE, URINE (UA) NEGATIVE (NEGATIVE); KETONES,URINE (UA) NEGATIVE (NEGATIVE); LEUKOCYTE ESTERASE, URINE NEGATIVE (NEGATIVE); NITRITE,URINE NEGATIVE (NEGATIVE); OCCULT BLOOD,URINE SMALL (NEGATIVE); PROTEIN,URINE 30 mg/dL (NEGATIVE); UROBILINOGEN,URINE 1 (NORMAL) E.U./dL (NORMAL)
[2021-02-05 16:52] LABS: CLARITY,URINE CLEAR (CLEAR)
[2021-02-05 17:04] LABS: RBC,URINE 0-5 /HPF (0-5)
[2021-02-05 17:05] LABS: BACTERIA,URINE Rare /HPF (None Seen); SQUAMOUS EPITHELIAL CELL,UR NONE SEEN (<= Few)
[2021-02-05 17:09] LABS: BASOPHILS % (AUTO) 0.5 %; EOSINOPHILS # (AUTO) 0.1 10^3/uL (0.0-0.7); EOSINOPHILS % (AUTO) 1.5 %; HCT - HEMATOCRIT 36.7 % (42.0-52.0); HGB - HEMOGLOBIN 11.6 g/dL (14.0-18.0); MEAN CORPUSCULAR HEMOGLOBIN 30.1 pg (27.0-31.0); MEAN CORPUSCULAR HGB CONC 31.6 g/dL (32.0-36.0); MEAN CORPUSCULAR VOLUME 95.1 fL (80.0-94.0); MEAN PLATELET VOLUME 9.2 fL (7.4-11.4); MONOCYTES # (AUTO) 0.9 10^3/uL (0.0-1.0); MONOCYTES % (AUTO) 11.6 %; NEUTROPHILS # (AUTO) 5.9 10^3/uL (1.5-6.6); PLT - PLATELET COUNT 276 10^3/uL (130-450); RED BLOOD COUNT 3.86 10^6/uL (4.70-6.10); RED CELL DISTRIBUTION WIDTH 18.2 % (12.0-15.0); WHITE BLOOD COUNT 7.9 x10^3/uL (4.8-10.8)
--- NOTE | 2021-02-05 17:12 | ED Physician Documentation ---
History of Present Illness - Stated complaint Stated Complaint: MALE - Chief complaint Chief Complaint: General - Additonal information Additional information: 85-year-old male who resides at [facility] is brought to the emergency departm ent for evaluation of right-sided rib cage. He did have an unwitnessed fall early this morning. However patient is able to recall the events for me. He reports he typically walks with a walker and an attempt to move it lost his footing. He denies that he lost consciousness. No preceding history of dementia though at baseline patient is reported to be a Glascow of 14. He is a full code however the POLST indicates that he should be no antibiotics. Patient has end-stage renal disease. Typically wheelchair-bound. He receives dialysis in [place] on Mondays and Fridays. PD PAST MEDICAL HISTORY - Past Medical History Cardiovascular: Murmur, Valve disorder Respiratory: COPD Endocrine/Autoimmune: None GI: GERD, Hiatal hernia : Dialysis HEENT: Chronic vision loss Psych: Depression Musculoskeletal: Osteoarthritis, Chronic back pain Derm: Other Other Past Medical History: ESRD. CKD. Right NAY. Right UE fistula - Past Surgical History Past Surgical History: Yes General: Colonoscopy Ortho: Hip replacement HEENT: Cataracts - Present Medications Home Medications: Ambulatory Orders Medication Instructions Recorded Confirmed Bisacodyl Supp [Dulcolax Supp] 10 mg AK DAILY PRN 05/27/20 05/27/20 Ergocalciferol (Vitamin D2) 1,250 mcg PO DAILY 05/27/20 05/27/20 [Vitamin D2] Folic Acid/Vit B Complex and C 1 tab PO DAILY 05/27/20 05/27/20 [Daina-Cricket Tablet] Losartan Potassium 50 mg PO QPM 05/27/20 05/27/20 Melatonin 3 mg PO QPM 05/27/20 05/27/20 Midodrine HCl 2.5 mg PO Q8HR 05/27/20 05/27/20 Pantoprazole Sodium [Protonix] 40 mg PO DAILY 05/27/20 05/27/20 Saccharomyces Boulardii [Florastor] 1 cap PO DAILY 05/27/20 05/27/20 Senna [Senokot] 1 - 2 tab PO BID PRN 05/27/20 05/27/20 - Allergies Allergies/Adverse Reactions: Allergies Allergy/AdvReac Type Severity Reaction Status Date / Time No Known Drug Allergies Allergy Verified 05/27/20 18:59 - Social History Does the pt smoke?: Yes Smoking Status: Current every day smoker Does the pt drink ETOH?: No Does the pt have substance abuse?: No - Immunizations Immunizations are current?: Yes - POLST Patient has POLST: No PD ED PE EXPANDED - General General: Alert, No acute distress, Other (Kyphotic appears chronically ill.) - Cardiac Cardiac: Regular Rate, Radial strong equal, Pedal strong equal, Cap refill < 2 sec, Other (Positive bruit and thrill at the dialysis port left upper extremity) - Respiratory Respiratory: Other (Tenderness to the right lateral rib wall without ecchymosis or erythema.). No: Distress, Labored - Abdomen Abdomen: Normal Bowel sounds - Derm Derm: Normal color, Warm and dry, Bruising (Extensive bruising on all 4 extremities.). No: Rash - Neuro Neuro: Confused, CNII-XII intact, Normal speech - GCS Eye Opening: Spontaneous Motor: Obeys Commands Verbal: Oriented Total: 15 Results - Vitals Vitals: Vital Signs - 24 hr 02/05/21 02/05/21 02/05/21 15:44 15:49 18:00 Temperature 37.1 C 37.1 C Heart Rate 64 64 84 Respiratory 18 18 17 Rate Blood Pressure 127/81 H 127/81 H 145/71 H O2 Saturation 94 94 85 L 02/05/21 02/05/21 02/05/21 18:05 20:00 21:00 Temperature Heart Rate 72 73 Respiratory 16 16 Rate Blood Pressure 124/72 136/70 H O2 Saturation 92 98 94 Oxygen O2 Source Nasal cannula Oxygen Flow Rate 2 - Labs Labs: Laboratory Tests 02/05/21 02/05/21 02/05/21 16:30 17:03 17:03 WBC 7.9 RBC 3.86 L Hgb 11.6 L Hct 36.7 L MCV 95.1 H MCH 30.1 MCHC 31.6 L RDW 18.2 H Plt Count 276 MPV 9.2 Neut # (Auto) 5.9 Lymph # (Auto) 1.0 L Izard # (Auto) 0.9 Eos # (Auto) 0.1 Baso # (Auto) 0.0 Absolute Nucleated RBC 0.00 Nucleated RBC % 0.0 Sodium 139 Potassium 3.8 Chloride 96 L Carbon Dioxide 26 Anion Gap 17.0 H BUN 50 H Creatinine 6.3 H Estimated GFR (MDRD) 9 L Glucose 119 H Calcium 9.0 Total Bilirubin 0.5 AST 24 ALT 26 Alkaline Phosphatase 76 Total Protein 7.1 Albumin 3.7 Globulin 3.4 Albumin/Globulin Ratio 1.1 Lipase 32 Urine Color YELLOW Urine Clarity CLEAR Urine pH 7.0 Ur Specific Camargo 1.020 Urine Protein 30 H Urine Glucose (UA) NEGATIVE Urine Ketones NEGATIVE Urine Occult Blood SMALL H Urine Nitrite NEGATIVE Urine Bilirubin NEGATIVE Urine Urobilinogen 1 (NORMAL) Ur Leukocyte Esterase NEGATIVE Urine RBC 0-5 Urine WBC 6-10 H Ur Squamous Epith Cells NONE SEEN Urine Bacteria Rare Ur Microscopic Review INDICATED Urine Culture Comments NOT INDICATED Nasal Adenovirus (PCR) Nasal B. parapertussis DNA (PCR) Nasal Coronavir 229E PCR Nasal Coronavir HKU1 PCR Nasal Coronavir NL63 PCR Nasal Coronavir OC43 PCR Nasal Enterovir/Rhinovir PCR Nasal Influenza B PCR Nasal Influenza A PCR Nasal Parainfluen 1 PCR Nasal Parainfluen 2 PCR Nasal Parainfluen 3 PCR Nasal Parainfluen 4 PCR Nasal RSV (PCR) Nasal B.pertussis DNA PCR Nasal C.pneumoniae (PCR) Tyrone Human Metapneumo PCR Nasal M.pneumoniae (PCR) Nasal SARS-CoV-2 (PCR) 02/05/21 19:50 WBC RBC Hgb Hct MCV MCH MCHC RDW Plt Count MPV Neut # (Auto) Lymph # (Auto) Izard # (Auto) Eos # (Auto) Baso # (Auto) Absolute Nucleated RBC Nucleated RBC % Sodium Potassium Chloride Carbon Dioxide Anion Gap BUN Creatinine Estimated GFR (MDRD) Glucose Calcium Total Bilirubin AST ALT Alkaline Phosphatase Total Protein Albumin Globulin Albumin/Globulin Ratio Lipase Urine Color Urine Clarity Urine pH Ur Specific Camargo Urine Protein Urine Glucose (UA) Urine Ketones Urine Occult Blood Urine Nitrite Urine Bilirubin Urine Urobilinogen Ur Leukocyte Esterase Urine RBC Urine WBC Ur Squamous Epith Cells Urine Bacteria Ur Microscopic Review Urine Culture Comments Nasal Adenovirus (PCR) NOT DETECTED Nasal B. parapertussis DNA (PCR) NOT DETECTED Nasal Coronavir 229E PCR NOT DETECTED Nasal Coronavir HKU1 PCR NOT DETECTED Nasal Coronavir NL63 PCR NOT DETECTED Nasal Coronavir OC43 PCR NOT DETECTED Nasal Enterovir/Rhinovir PCR NOT DETECTED Nasal Influenza B PCR NOT DETECTED Nasal Influenza A PCR NOT DETECTED Nasal Parainfluen 1 PCR NOT DETECTED Nasal Parainfluen 2 PCR NOT DETECTED Nasal Parainfluen 3 PCR NOT DETECTED Nasal Parainfluen 4 PCR NOT DETECTED Nasal RSV (PCR) NOT DETECTED Nasal B.pertussis DNA PCR NOT DETECTED Nasal C.pneumoniae (PCR) NOT DETECTED Tyrone Human Metapneumo PCR NOT DETECTED Nasal M.pneumoniae (PCR) NOT DETECTED Nasal SARS-CoV-2 (PCR) NOT DETECTED - Rads (name of study) ribs right with PA Radiology: Final report received (Suboptimal examination. No acute definitive right rib fractures. Old right seventh rib fracture is noted. Left basilar atelectasis.) CT head Radiology: Final report received (No acute intracranial abnormalities) Cervical CT Radiology: Final report received (No acute cervical spine fracture. Degenerative and facet disease in cervical spine. Right upper lobe consolidation compatible with pneumonia) Ct chest Radiology: Final report received (irregular airspace opacity in the righ corina lobe suspicious for pna. ), See rad report PD MEDICAL DECISION MAKING - ED course Complexity details: reviewed results, re-evaluated patient ED course: 85-year-old male who has end-stage renal disease and is on dialysis twice times weekly (mon and fri) is brought to the emergency department for evaluation of right lateral rib wall pain after an unwitnessed ground-level fall. He initially presented to a local walk-in clinic but was advised to come here for concern that he may have a urinary tract infection. This gentleman is anuric and does not make urine routinely. He presents slightly confused with a Rubén Coma Scale of 14 but in discussion with the staff at [facility] this appears to be his baseline. A CT of the head did not show any acute intracranial abnormalities. An x-ray of his ribs with a PA of the chest did not demonstrate any acute rib fractures or findings of a pneumothorax. Subsequent CT of the neck showed no acute fractures but does show developing pneumonia in the right upper lobe. This was followed up with a CT of the chest that does show RUL pna. Patient has been transiently hypoxic here in the emergency department with saturations down to 85%. He was placed on 2 L nasal cannula with resultant rise in sats to the mid 90s. 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 He resides in [place]. We discussed the finding of pneumonia on the CT. Unfortunately this patient is at very high risk for outpatient failure of the pneumonia given his pre-existing medical disease. CURB 65 score is 3, putcyndi quiros in the severre risk category. In addition he has developed a new hypoxia. I discussed with him that the POLST form showed full treatment and resuscitative efforts but no antibiotics. Saul reports that he was not aware of that and he would like his father to receive antibiotics. I have initiated the patient on antibiotics with initial doses of ceftriaxone and azithromycin. He remains comfortable here in the ER but it will prove challenging to find appropriate admission bed at an outside facility that can accommodate his dialysis services. However based on his current dialysis schedule he would not be scheduled for dialysis again until 08 February Patient is signed out to my nighttime colleague Dr. Post Departure - Departure Disposition: 02 Transfer Acute Care Hosp Clinical Impression: ESRD (end stage renal disease) on dialysis, Hypoxia Pneumonia Qualifiers: Pneumonia type: due to unspecified organism Laterality: right Lung location: upper lobe of lung Qualified Code(s): J18.9 - Pneumonia, unspecified organism
[2021-02-05 17:23] LABS: ALBUMIN 3.7 g/dL (3.2-5.5); ALBUMIN/GLOBULIN RATIO 1.1 (1.0-2.2); BILIRUBIN,TOTAL 0.5 mg/dL (0.2-1.0); CREATININE 6.3 mg/dL (0.6-1.2); POTASSIUM 3.8 mmol/L (3.5-5.0); TOTAL PROTEIN 7.1 g/dL (6.7-8.2)
--- NOTE | 2021-02-05 17:24 | XRAY Report ---
PROCEDURE: Ribs w/PA Chest RT INDICATIONS: fall; right rib pain TECHNIQUE: 3 views of the left ribs were acquired, along with a single view chest. COMPARISON: Chest x-ray, two-view, 11/09/2019. FINDINGS: There is significant rotation. Surgical changes and devices: None. Bones and chest wall: There is an old right seventh rib fracture. No definitive acute right rib fract ure. No suspicious bony lesions. Overlying soft tissues appear unremarkable. Lungs and pleura: No pleural effusions or pneumothorax. Bibasilar atelectasis. Mediastinum: Mediastinal contours appear normal. Heart size is normal. IMPRESSION: 1. Suboptimal examination. No acute definitive right rib fractures. Old right seventh rib fracture is noted 2. Left basilar atelectasis. Reviewed by: Flori Bhatia MD on 02/05/2021 5:22 PM PST Approved by: Flori Bhatia MD on 02/05/2021 5:22 PM PST Station ID: [id number]
--- NOTE | 2021-02-05 18:07 | CT Report ---
PROCEDURE: HEAD WO INDICATIONS: GLF TECHNIQUE: Noncontrast 4.5 mm thick angled axial sections acquired from the foramen magnum to the vertex. For r adiation dose reduction, the following was used: automated exposure control, adjustment of mA and/or kV according to patient size. COMPARISON: CT at without contrast, 05/27/2020. FINDINGS: Image quality: Excellent. CSF spaces: Basal cisterns are patent. No extra-axial fluid collections. Ventricles are normal in size and shape. Brain: No midline shift. No intracranial masses or hemorrhage. 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 There is moderate cerebral volume loss and mild periventricular white matter chronic small vessel ischemic changes. Skull and face: Calvarium and visualized facial bones are intact, without suspicious lesions. Sinuses: Visualized sinuses and mastoids are clear. IMPRESSION: 1. No acute intracranial abnormalities. Reviewed by: Flori Bhatia MD on 02/05/2021 6:06 PM [facility] Approved by: Flori Bhatia MD on 02/05/2021 6:06 PM [facility] Station ID: [id number]
--- NOTE | 2021-02-05 18:12 | CT Report ---
PROCEDURE: CERVICAL SPINE WO INDICATIONS: glf; left sided neck pain TECHNIQUE: Noncontrast 3 mm thick sections acquired from the skull base to the T4 level. Sagittal and coronal r eformats were then constructed. For radiation dose reduction, the following was used: automated exp osure control, adjustment of mA and/or kV according to patient size. COMPARISON: CT cervical spine, 05/27/2020. FINDINGS: Image quality: Excellent. Bones: No fractures or dislocations. There is degenerative disc disease, moderate to severe at the C5-C6 and C6-C7, mild at other levels. Bilateral facet arthropathy, most pronounced at C3-C4. There i s moderate atlantoaxial joint degeneration. Visualized superior ribs are intact. Soft tissues: Prevertebral soft tissues are normal in thickness. No paravertebral hematomas. No ap ical pneumothoraces. Infiltrate and consolidation in the posterior segment of the right upper lobe. IMPRESSION: 1. No acute cervical spine fracture. 2. Degenerative and facet disease in cervical spine. 3. Right upper lobe consolidation compatible with pneumonia. Reviewed by: Flori Bhatia MD on 02/05/2021 6:10 PM PST Approved by: Flori Bhatia MD on 02/05/2021 6:10 PM PST Station ID: [id number]
[2021-02-05] MEDS ORDERED: cefTRIAXone 1 GM VIAL IVP STA (19:10)
[2021-02-05] MEDS ORDERED: AZITHROMYCIN INJ 500 MG in SODIUM CHLORIDE 0.9% 250 ML IV STA (19:10)
--- NOTE | 2021-02-05 20:26 | CT Report ---
PROCEDURE: CHEST WO INDICATIONS: pneumonia TECHNIQUE: Noncontrast 1mm axial images were acquired from the pulmonary apices to the posterior costophrenic an gles. Axial 5 mm soft tissue kernel reconstructions were performed as well as 8 mm axial MIP and cor onal and sagittal 5 mm reformations. For radiation dose reduction, the following was used: automate d exposure control, adjustment of mA and/or kV according to patient size. COMPARISON: Chest CT without contrast, 09/23/2019. Chest x-ray, 11/09/2019. FINDINGS: Image quality: Excellent. Lungs and pleura: Chronic left hemidiaphragm elevation appears unchanged. There is an irregular airs pace opacity in right upper lobe. Linear densities in both lower lobes are most likely scars and atel ectasis. Subpleural calcification in the right hemithorax. No pleural effusions or pneumothorax. Jacquie tral and peripheral airways are patent and normal in caliber. Mediastinum: Heart size is normal. No pericardial effusion. Mild enlarged mediastinal lymph nodes a re likely reactive. Thoracic aorta and central pulmonary arteries are normal in size. Esophagus is normal in caliber. There is a moderate-sized hiatal hernia. Bones and chest wall: No suspicious bony lesions. There is T9 vertebral body compression fracture, n ew since 08/29/2019. No axillary or supraclavicular adenopathy by size criteria. The thyroid is jeremiah l in size and there are no incidental findings. Abdomen: There are multiple hepatic cysts. These are atrophic. Calcific foci seen renal hilum may be calcified vessels or nonobstructive stones. IMPRESSION: 1. Irregular airspace opacity in the right upper lobe suspicious for pneumonia. 2. Bilateral lower lobe linear densities are most likely scars and atelectasis. 3. Mild mediastinal lymphadenopathy, most likely reactive. 4. Chronic left hemidiaphragm elevation. 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 5. Moderate-sized hiatal hernia. 6. New moderate compression fracture of T9 since 09/23/2019. The CT appearance suggests a subacute fra cture or chronic fracture. If clinically indicated, MRI may be helpful. Reviewed by: Flori Bhatia MD on 02/05/2021 8:25 PM PST Approved by: Flori Bhatia MD on 02/05/2021 8:25 PM PST Station ID: [id number]
[2021-02-05 21:02] LABS: B. PARAPERTUSSIS- RESP PCR PAN NOT DETECTED; B. PERTUSSIS- RESP PCR PANEL NOT DETECTED; C. PNEUMONIAE- RESP PCR PANEL NOT DETECTED; CORONAVIRUS 229E-RESP PCR NOT DETECTED; CORONAVIRUS HKU1-RESP PCR NOT DETECTED; CORONAVIRUS NL63-RESP PCR NOT DETECTED; CORONAVIRUS OC43-RESP PCR NOT DETECTED; HUMAN METAPNEUMOVIRUS NOT DETECTED; INFLUENZA A- RESP PCR PANEL NOT DETECTED; INFLUENZA B - RESP PCR PANEL NOT DETECTED; M. PNEUMONIAE- RESP PCR PANEL NOT DETECTED; PARAINFLUENZA VIRUS 1 NOT DETECTED; PARAINFLUENZA VIRUS 2 NOT DETECTED; PARAINFLUENZA VIRUS 3 NOT DETECTED; PARAINFLUENZA VIRUS 4 NOT DETECTED; RHINOVIRUS/ENTEROVIRUS NOT DETECTED; RSV- RESP PCR PANEL NOT DETECTED; SARS-CoV-2 -RESP PCR PANEL NOT DETECTED
[2021-02-05 23:11] VITALS: BP 140/84
== END 2021-02-05 23:21 | disposition short-term general hospital (02) ==
LOC: EDUNIT# → ED 15:38
DX: J18.9 Pneumonia, unspecified organism (principal); R09.02 Hypoxemia; Z20.822 Contact with and (suspected) exposure to COVID-19; N18.6 End stage renal disease; Z99.2 Dependence on renal dialysis; S40.022A Contusion of left upper arm, initial encounter; S40.021A Contusion of right upper arm, initial encounter; S80.12XA Contusion of left lower leg, initial encounter; S80.11XA Contusion of right lower leg, initial encounter; W18.39XA Other fall on same level, initial encounter; Y93.01 Activity, walking, marching and hiking; Y92.129 Unspecified place in nursing home as the place of occurrence of the external cause; M50.322 Other cervical disc degeneration at C5-C6 level; K44.9 Diaphragmatic hernia without obstruction or gangrene; F17.200 Nicotine dependence, unspecified, uncomplicated
CPT/HCPCS: 0202U; 36415; 80053; 81001; 81003; 83690; 85025; 87086; 96365; 96375; 99283

== ENCOUNTER 2021-02-05 23:12 | Outpatient (CLI) | payer MEDICARE | END 2021-02-05 23:13 | disposition short-term general hospital (02) | LOC: EMS 23:12 | PROVIDERS: ATTEND Registered Nurse | DX: J18.9 Pneumonia, unspecified organism (principal); N18.6 End stage renal disease; Z99.2 Dependence on renal dialysis; J44.9 Chronic obstructive pulmonary disease, unspecified; Z74.01 Bed confinement status | CPT/HCPCS: A0425; A0428 ==

== ENCOUNTER 2021-02-11 08:48 | Outpatient (CLI) | payer MEDICARE | END 2021-02-11 08:49 | disposition short-term general hospital (02) | LOC: EMS 08:48 | DX: R53.1 Weakness (principal); R53.83 Other fatigue | CPT/HCPCS: A0425; A0429 ==